=== PATIENT | female | born 2000 | race American Indian/Alaskan Native ===

== ENCOUNTER 2018-04-30 03:24 | Emergency (ER) | payer SELFPAY ==
[2018-04-30] MEDS ORDERED: NACL 0.9% 1000 ML 1,000 ML IV ONE (03:54)
[2018-04-30 04:21] LABS: Basophils % (Auto) 0.3 % (0.0-1.8); Eosinophils # (Auto) 0.1 K/mm3 (0.0-0.4); Eosinophils % (Auto) 3.4 % (0.0-4.3); Hematocrit 36.7 % (30.3-42.9); Hemoglobin 12.4 gm/dl (10.1-14.3); Lymphocytes % (Auto) 29.3 % (13.4-35.0); Mean Corpuscular HGB Conc 34 % (30-34); Mean Corpuscular Hemoglobin 30 pg (28-32); Mean Corpuscular Volume 88 fl (79-97); Monocytes # (Auto) 0.4 K/mm3 (0.0-0.8); Monocytes % (Auto) 11.1 % (0.0-7.3); Platelet Count 247 K/mm3 (140-440); Red Blood Count 4.16 M/mm3 (3.65-5.03); Red Cell Distribution Width 12.5 % (13.2-15.2)
[2018-04-30 05:42] LABS: Alanine Aminotransferase 12 units/L (7-56); Albumin 4.4 g/dL (3.9-5); BUN/Creatinine Ratio 9; Blood Urea Nitrogen 8 mg/dL (7-17); Calcium 9.1 mg/dL (8.4-10.2); Hemolysis Index 6
[2018-04-30 05:47] LABS: Bacteria,Urine 1+ /HPF (Negative); Bilirubin,Urine NEG (Negative); Blood,Urine NEG (Negative); Color,Urine Yellow (Yellow); Protein,Urine <15 mg/dL mg/dL (Negative); Urobilinogen,Urine < 2.0 mg/dL (<2.0)
--- NOTE | 2018-04-30 07:59 | Emergency Department Report ---
ED Abdominal Pain HPI - General Chief Complaint: Abdominal Pain Stated Complaint: DIZZINESS KIDNEY PAIN Source: patient Mode of arrival: Ambulatory Limitations: No Limitations - History of Present Illness Initial Comments: This is a 17-year-old -[place] female presents with pain to left lower abdomen with bowel movements. Patient reports abdominal pain is currently resolved. She usually experiences pain during bowel movements or if she hadn't had one in a while. She reports pain is usually pressure in the lower pelvic area on the left side. Patient also complains of upper respiratory symptoms. Coughing, chills, rhinorrhea and fever for 2 weeks. Patient is on duty assumption she possibly has the flu. She has been taken NyQuil with some improvement of symptoms. Patient states she did take DayQuil prior to arrival and increased fluid intake. Patient denies chest pain, shortness of breath, sore throat, frequency, urgency, dysuria, constipation, diarrhea, vaginal discharge or bleeding. MD Complaint: abdominal pain Onset/Timin -: week(s) Location: LLQ Radiation: none Migration to: no migration Severity: mild Severity scale (0 -10): 0 Quality: cramping Consistency: now resolved Improves With: nothing Worsens With: bowel movement Associated Symptoms: fever, chills. denies: nausea, vomiting, diarrhea, constipation, dysuria, hematemesis, hematochezia, melena, hematuria, anorexia, syncope - Related Data LMP Date: 04/23/18 Previous Rx's Medication Instructions Recorded Last Taken Type Benzonatate [Tessalon Perles] 100 mg PO Q8HR PRN #15 capsule 04/30/18 Unknown Rx Fluticasone [Flonase] 1 spray NS QDAY #1 bottle 04/30/18 Unknown Rx guaiFENesin/DEXTROMETHORPHAN 1 each PO BID #10 tab.er.12h 04/30/18 Unknown Rx [Mucinex Dm ER 1,200-60 mg Tab] Allergies Allergy/AdvReac Type Severity Reaction Status Date / Time No Known Allergies Allergy Verified 04/30/18 07:20 ED Review of Systems ROS: Stated complaint: DIZZINESS KIDNEY PAIN Other details as noted in HPI Constitutional: chills, fever ENT: congestion. denies: ear pain, throat pain, dental pain, hearing loss, epistaxis Respiratory: cough. denies: shortness of breath, wheezing Cardiovascular: denies: chest pain, palpitations Gastrointestinal: abdominal pain (left lower quadrant). denies: nausea, diarrhea Musculoskeletal: denies: back pain, joint swelling, arthralgia Skin: denies: rash, lesions Neurological: denies: headache, weakness, paresthesias Psychiatric: denies: anxiety, depression ED Past Medical Hx - Past Medical History Previous Medical History?: No - Surgical History Past Surgical History?: No - Social History Smoking Status: Never Smoker Substance Use Type: Marijuana - Medications Home Medications: Home Medications Medication Instructions Recorded Confirmed Last Taken Type Benzonatate [Tessalon Perles] 100 mg PO Q8HR PRN #15 capsule 04/30/18 Unknown Rx Fluticasone [Flonase] 1 spray NS QDAY #1 bottle 04/30/18 Unknown Rx guaiFENesin/DEXTROMETHORPHAN 1 each PO BID #10 tab.er.12h 04/30/18 Unknown Rx [Mucinex Dm ER 1,200-60 mg Tab] ED Physical Exam - General Limitations: No Limitations General appearance: alert, in no apparent distress, obese - ENT ENT exam: Present: mucous membranes moist, other (turbinates mildly congested with clear discharge). Absent: normal orophraynx (erythematous posterior pharynx, uvula midline) - Respiratory Respiratory exam: Present: normal lung sounds bilaterally. Absent: respiratory distress - Cardiovascular Cardiovascular Exam: Present: regular rate, normal rhythm. Absent: systolic murmur, diastolic murmur, rubs, gallop - GI/Abdominal GI/Abdominal exam: Present: soft, normal bowel sounds. Absent: distended, tenderness, guarding, rebound, rigid, organomegaly, mass - Back Exam Back exam: Absent: CVA tenderness (R), CVA tenderness (L) - Neurological Exam Neurological exam: Present: alert, oriented X3 - Psychiatric Psychiatric exam: Present: normal affect, normal mood - Skin Skin exam: Present: warm, dry, intact, normal color. Absent: rash ED Course Vital Signs 04/30/18 04/30/18 04/30/18 03:42 08:40 08:47 Temperature 100.6 F H Pulse Rate 100 H 78 Respiratory 16 18 Rate Blood Pressure 121/71 124/80 O2 Sat by Pulse 95 99 99 Oximetry ED Medical Decision Making - Lab Data Result diagrams: 04/30/18 03:57 04/30/18 03:57 Lab Results 04/30/18 04/30/18 04/30/18 Range/Units 03:57 03:57 04:59 WBC 3.4 L (4.5-11.0) K/mm3 RBC 4.16 (3.65-5.03) M/mm3 Hgb 12.4 (10.1-14.3) gm/dl Hct 36.7 (30.3-42.9) % MCV 88 (79-97) fl MCH 30 (28-32) pg MCHC 34 (30-34) % RDW 12.5 L (13.2-15.2) % Plt Count 247 (140-440) K/mm3 Lymph % (Auto) 29.3 (13.4-35.0) % [place] % (Auto) 11.1 H (0.0-7.3) % Eos % (Auto) 3.4 (0.0-4.3) % Baso % (Auto) 0.3 (0.0-1.8) % Lymph # 1.0 L (1.2-5.4) K/mm3 [place] # 0.4 (0.0-0.8) K/mm3 Eos # 0.1 (0.0-0.4) K/mm3 Baso # 0.0 (0.0-0.1) K/mm3 Seg Neutrophils % 55.9 (40.0-70.0) % Seg Neutrophils # 1.9 (1.8-7.7) K/mm3 Sodium 137 (137-145) mmol/L Potassium 3.9 (3.6-5.0) mmol/L Chloride 102.0 (98-107) mmol/L Carbon Dioxide 21 L (22-30) mmol/L Anion Gap 18 mmol/L BUN 8 (7-17) mg/dL Creatinine 0.9 (0.7-1.2) mg/dL Estimated GFR > 60 ml/min BUN/Creatinine Ratio 9 % Glucose 114 H (65-100) mg/dL Calcium 9.1 (8.4-10.2) mg/dL Total Bilirubin 0.30 (0.1-1.2) mg/dL AST 16 (5-40) units/L ALT 12 (7-56) units/L Alkaline Phosphatase 62 (35-129) units/L Total Protein 7.3 (6.3-8.2) g/dL Albumin 4.4 (3.9-5) g/dL Albumin/Globulin Ratio 1.5 % Urine Color Yellow (Yellow) Urine Turbidity Clear (Clear) Urine pH 6.0 (5.0-7.0) Ur Specific [place]vin 1.008 (1.003-1.030) Urine Protein <15 mg/dl (Negative) mg/dL Urine Glucose (UA) Neg (Negative) mg/dL Urine Ketones Neg (Negative) mg/dL Urine Blood Neg (Negative) Urine Nitrite Neg (Negative) Urine Bilirubin Neg (Negative) Urine Urobilinogen < 2.0 (<2.0) mg/dL Ur Leukocyte Esterase Neg (Negative) Urine WBC (Auto) 1.0 (0.0-6.0) /HPF Urine RBC (Auto) 3.0 (0.0-6.0) /HPF U Epithel Cells (Auto) 2.0 (0-13.0) /HPF Urine Bacteria (Auto) 1+ (Negative) /HPF - Medical Decision Making 17 y.o. male that presents with URI symptoms and left lower abdominal pain. Patient examined by me and stable. No distress noted. Temperature slightly elevated. Labs obtained. WBCs low all of the labs are unremarkable. My physical exam negative abdominal tenderness. There were upper respiratory symptoms. Reviewed results with patient. Start Flonase, altace, mucinex dm for upper respiratory infection. Instructed to follow-up with primary care provider for further evaluation of chronic stomach pain. Discharged home stable. Encouraged to do supportive care for URI. Follow up with Primary Care Provider in 2-3 days. Critical care attestation.: If time is entered above; I have spent that time in minutes in the direct care of this critically ill patient, excluding procedure time. ED Disposition Clinical Impression: Upper respiratory infection, viral, Abdominal pain in female Disposition: DC-01 TO HOME OR SELFCARE Is pt being admited?: No Does the pt Need Aspirin: No Condition: Stable Instructions: Upper Respiratory Infection (ED), Viral Syndrome (ED), Abdominal Pain (ED) Additional Instructions: Increase fluid intake and rest. Wash hands frequently. Continue taking tylenol or ibuprofen to control fever. F/U with Primary Care Provider. Follow-up gastroenterology at [facility] for further evaluation of chronic stomach pain. Return to ER if fever, SOB, or difficulty breathing after 48 hours of supportive care. Prescriptions: Benzonatate [Tessalon Perles] 100 mg PO Q8HR PRN #15 capsule PRN Reason: Cough Fluticasone [Flonase] 1 spray NS QDAY #1 bottle guaiFENesin/DEXTROMETHORPHAN [Mucinex Dm ER 1,200-60 mg Tab] 1 each PO BID #10 tab.er.12h Referrals: [facility] [Outside] - 3-5 Days [facility] [Outside] - 3-5 Days [facility] [Provider Group] - 3-5 Days Time of Disposition: 08:11 Print Language: VIETNAMESE
[2018-04-30 08:47] VITALS: BP 124/80
== END 2018-04-30 08:49 | disposition home or self-care (01) ==
LOC: ED 03:24
DX: J06.9 Acute upper respiratory infection, unspecified (principal); R10.32 Left lower quadrant pain; F12.10 Cannabis abuse, uncomplicated
CPT/HCPCS: 36415; 80053; 81001; 85025; 93005; 93010; 99283

== ENCOUNTER 2018-08-15 08:09 | Emergency (ER) | payer SELFPAY ==
--- NOTE | 2018-08-15 09:04 | Emergency Department Report ---
ED Female HPI - General Chief complaint: Urogenital-Female Stated complaint: (4)WKS/PELVIC PAIN/BACK PAIN Time Seen by Provider: 08/15/18 08:30 Source: patient Mode of arrival: Ambulatory Limitations: No Limitations - History of Present Illness Initial comments: Petar is a very pleasant 17-year-old who presents with questions concern ing her first urgency. She had multiple questions about anticipated symptoms. She had vaginal spotting today. During her last ED visit 1 month ago she was informed that she was . She denies any pain at this time. She denies dysuria or hematuria. Due to lack of insurance she has not had access to care. However she plans to terminate this . She just wanted make sure that the vaginal spotting was a normal finding. She denies any vomiting. She denies any fever. Denies back pain. According to her LMP, currently gestational age is 9 weeks 6 days. MD Complaint: vaginal bleeding -: Gradual, This morning Severity: mild Consistency: intermittent Are you Now?: Yes Last Menstrual Period: 07/12/18 EDC: 04/18/19 Associated Symptoms: denies other symptoms - Related Data Previous Rx's Medication Instructions Recorded Last Taken Type Benzonatate [Tessalon Perles] 100 mg PO Q8HR PRN #15 capsule 04/30/18 Unknown Rx Fluticasone [Flonase] 1 spray NS QDAY #1 bottle 04/30/18 Unknown Rx guaiFENesin/DEXTROMETHORPHAN 1 each PO BID #10 tab.er.12h 04/30/18 Unknown Rx [Mucinex Dm ER 1,200-60 mg Tab] Nitrofurantoin Monohyd/M-Cryst 100 mg PO BID PRN #10 capsule 07/22/18 Unknown Rx [Macrobid 100 mg Capsule] Pnv No.118/Iron Fumarate/FA 1 each PO QDAY #30 tab.chew 07/22/18 Unknown Rx [ 19 Chewable] Allergies Allergy/AdvReac Type Severity Reaction Status Date / Time No Known Allergies Allergy Verified 04/30/18 07:20 ED Review of Systems ROS: Stated complaint: (4)WKS/PELVIC PAIN/BACK PAIN Other details as noted in HPI Comment: All other systems reviewed and negative Constitutional: denies: fever, malaise Respiratory: denies: cough Cardiovascular: denies: chest pain ED Past Medical Hx - Past Medical History Previous Medical History?: No - Surgical History Past Surgical History?: No - Social History Smoking Status: Never Smoker Substance Use Type: None - Medications Home Medications: Home Medications Medication Instructions Recorded Confirmed Last Taken Type Benzonatate [Tessalon Perles] 100 mg PO Q8HR PRN #15 capsule 04/30/18 Unknown Rx Fluticasone [Flonase] 1 spray NS QDAY #1 bottle 04/30/18 Unknown Rx guaiFENesin/DEXTROMETHORPHAN 1 each PO BID #10 tab.er.12h 04/30/18 Unknown Rx [Mucinex Dm ER 1,200-60 mg Tab] Nitrofurantoin Monohyd/M-Cryst 100 mg PO BID PRN #10 capsule 07/22/18 Unknown Rx [Macrobid 100 mg Capsule] Pnv No.118/Iron Fumarate/FA 1 each PO QDAY #30 tab.chew 07/22/18 Unknown Rx [ 19 Chewable] ED Physical Exam - General Limitations: No Limitations General appearance: alert, in no apparent distress - Head Head exam: Present: atraumatic, normocephalic - Eye Eye exam: Present: normal appearance - ENT ENT exam: Present: mucous membranes moist - Neck Neck exam: Present: normal inspection. Absent: tenderness, meningismus, full ROM - Respiratory Respiratory exam: Present: normal lung sounds bilaterally. Absent: respiratory distress, wheezes, rales, rhonchi - Cardiovascular Cardiovascular Exam: Present: regular rate, normal rhythm, normal heart sounds. Absent: systolic murmur, diastolic murmur, rubs, gallop - GI/Abdominal GI/Abdominal exam: Present: soft, normal bowel sounds. Absent: distended, tenderness, guarding, rebound - Extremities Exam Extremities exam: Present: normal inspection - Back Exam Back exam: Present: normal inspection - Neurological Exam Neurological exam: Present: alert, oriented X3 - Psychiatric Psychiatric exam: Present: normal affect, normal mood - Skin Skin exam: Present: warm, dry, intact, normal color. Absent: rash ED Course Vital Signs 08/15/18 08:14 Temperature 97.3 F L Pulse Rate 77 Respiratory 16 Rate Blood Pressure 122/73 O2 Sat by Pulse 100 Oximetry ED Medical Decision Making - Medical Decision Making Petar presents with threatened miscarriage. Without current pain I do not suspect ectopic . Normal vital signs. She appears quite comfortable. confirmed here in the ED with positive serum and urine tests. Blood type AB+. RhoGAM not indicated. Critical care attestation.: If time is entered above; I have spent that time in minutes in the direct care of this critically ill patient, excluding procedure time. ED Disposition Clinical Impression: Threatened miscarriage Disposition: DC-01 TO HOME OR SELFCARE Is pt being admited?: No Does the pt Need Aspirin: No Condition: Stable Instructions: Threatened Miscarriage (ED) Referrals: VONNIE BAUER MD [Staff Physician] - 3-5 Days
[2018-08-15 09:28] LABS: Bacteria,Urine 1+ /HPF (Negative); Bilirubin,Urine NEG (Negative); Blood,Urine MOD (Negative); Color,Urine Straw (Yellow); Mucus,Urine FEW /HPF; Protein,Urine <15 mg/dL mg/dL (Negative); Urobilinogen,Urine < 2.0 mg/dL (<2.0)
[2018-08-15 09:41] LABS: HCG Qualitative,Urine Positive (Negative)
[2018-08-15 10:57] VITALS: BP 120/70
== END 2018-08-15 10:56 | disposition home or self-care (01) ==
LOC: ED 08:09
DX: O20.0 Threatened abortion (principal); Z3A.01 Less than 8 weeks gestation of pregnancy
CPT/HCPCS: 36415; 81001; 81025; 84702; 86900; 86901; 99283